=== PATIENT | male | born 1950 ===

== ENCOUNTER 2023-05-18 11:45 | Inpatient (IN) | payer OTHER ==
[~2023-05-18] VITALS: Ht 177.8 cm; Wt 84.4 kg
[2023-05-18] MEDS ORDERED: GLIPIZIDE XL10 MG PO (13:40)
[2023-05-18] MEDS ORDERED: METFORMIN HCL500 M3 PO (13:40)
[2023-05-18] MEDS ORDERED: TAMS0.4C PO (13:41)
[2023-05-18] MEDS ORDERED: ROSUVASTATIN CA20 MG PO (13:41)
[2023-05-18] MEDS ORDERED: CILOSTAZOL50 MG PO (13:41)
[2023-05-18] MEDS ORDERED: PRILOSEC OTC20 MG PO (13:41)
[2023-05-18] MEDS ORDERED: PROSCAR5 MG PO (13:42)
[2023-05-18] MEDS ORDERED: LANTUS SOL100 UNIT/1 (13:42)
[2023-05-23 07:19] LABS: HEMATOCRIT 32.2 % (39.0-48.0); MEAN CELL VOLUME 73.8 fL (80.0-100.00); MEAN CORPUSCULAR HGB CONC 31.2 g/dl (32.0-36.0); PLATELET COUNT 349 K/uL (150-450); RED BLOOD COUNT 4.36 M/uL (4.00-6.00); RED CELL DISTRIBUTION WIDTH 21.6 % (11.5-14.5)
[2023-05-23 07:36] LABS: ALBUMIN 2.7 gm/dL (3.4-5.0); CALCIUM 8.6 mg/dL (8.5-10.1); CREATININE SERUM 0.71 mg/dL (0.70-1.30); GFR 109.36; MAGNESIUM 1.8 mg/dL (1.8-2.4); PHOSPHOROUS 3.1 mg/dL (2.5-4.9); POTASSIUM 4.71 mEq/L (3.5-5.1)
[2023-05-25] MEDS ORDERED: NEURONTIN300 MG PO (10:51)
[2023-05-25] MEDS ORDERED: INTESTINEX680 M1 PO (10:51)
== END 2023-05-25 11:48 | disposition home or self-care (01) | DRG 331 ==
LOC: O/R 05-22 06:00 → SURG 05-22 11:45 → SURH 05-22 13:37
PROVIDERS: ADMIT Surgery; ATTEND Surgery
PROC: 07BB4ZZ Excision of Mesenteric Lymphatic, Percutaneous Endoscopic Approach (ICD-10-PCS; 2023-05-22)
PROC: 0DTF4ZZ Resection of Right Large Intestine, Percutaneous Endoscopic Approach (ICD-10-PCS; principal; 2023-05-22 13:15)
DX: C18.2 Malignant neoplasm of ascending colon (principal); R59.0 Localized enlarged lymph nodes

== ENCOUNTER 2024-02-10 00:34 | Inpatient (IN) | payer OTHER ==
[~2024-02-10] VITALS: Ht 152.4 cm; Wt 61.7 kg
[~2024-02-10 00:34] MED LIST: CILOSTAZOL50 MG PO; GLIPIZIDE XL10 MG PO; INTESTINEX680 M1 PO; LANTUS SOL100 UNIT/1; METFORMIN HCL500 M3 PO; NEURONTIN300 MG PO; PRILOSEC OTC20 MG PO; PROSCAR5 MG PO; ROSUVASTATIN CA20 MG PO; TAMS0.4C PO
--- NOTE | 2024-02-10 00:47 | NUR ---
PACIENTE MASCULINO ALERTA Y ORIENTADO X3, LLEGA A VIPIN DE EMERGENCIA EN AMBULANCIA. TRANFER DE DOCTOR [place], FUE OPERADO POR PAKO INGRAM Y FUE ACEPTADO POR LISA.
[2024-02-10] MEDS ORDERED: METRONIDAZOLE/SODIUM CHLORIDE 500 MG/100 ML PIGGYBACK IV STA (02:00)
[2024-02-10] MEDS ORDERED: CIPROFLOXACIN IN 5 % DEXTROSE 400 MG/200 ML PIGGYBAG IV SCH ×2 (02:00→09:00)
[2024-02-10] MEDS ORDERED: CIPROFLOXACIN IN 5 % DEXTROSE 400 MG/200 ML PIGGYBAG IV STA (02:00)
[2024-02-10] MEDS ORDERED: METRONIDAZOLE/SODIUM CHLORIDE 500 MG/100 ML PIGGYBACK IV SCH ×2 (02:01→09:00)
--- NOTE | 2024-02-10 02:10 | NUR ---
SE LE ORIENTA A PACIENTE SOBRE LA ORDEN MEDICA, REFIERE ENTENDER LAS MISMAS. SE CANALIZA Y SE LE COLOCA EL IVF'S, SE LE LARISSA LAS MUESTRAS Y SE LE ADMINISTRAN LOS MEDICAMENTOS SOM LA ORDEN MEDICA.
[2024-02-10] MEDS ORDERED: 0.9 % SODIUM CHLORIDE 1,000 ML IV ONE (02:15)
[2024-02-10 03:16] LABS: HEMATOCRIT 34.5 % (39.0-48.0); HEMOGLOBIN 11.3 g/dL (13-16.00); MEAN CELL VOLUME 81.1 fL (80.0-100.00); MEAN CORPUSCULAR HEMOGLOBIN 26.6 pg (27.00-32.0); MEAN CORPUSCULAR HGB CONC 32.8 g/dl (32.0-36.0); PLATELET COUNT 181 K/uL (150-450); RED BLOOD COUNT 4.25 M/uL (4.00-6.00); RED CELL DISTRIBUTION WIDTH 21.9 % (11.5-14.5)
[2024-02-10 03:26] LABS: INR 1.04; PROTHROMBIN TIME 11.3 SECONDS (9.0-11.5)
[2024-02-10 03:30] LABS: ALBUMIN 2.8 gm/dL (3.4-5.0); BILIRUBIN TOTAL 0.78 mg/dL (0.3-1.2); BILIRUBIN,CONJUGATED 0.26 mg/dL (0.0-0.2); BILIRUBIN,UNCONJUGATED 0.52 mg/dL (0.0-0.6); CALCIUM 8.4 mg/dL (8.5-10.1); CREATININE SERUM 0.75 mg/dL (0.70-1.30); GFR 102.37; POTASSIUM 3.61 mEq/L (3.5-5.1); TOTAL PROTEIN 6.8 gm/dL (6.4-8.2)
--- NOTE | 2024-02-10 07:37 | NUR ---
SE RECIBE PACIENTE ALERTA Y ORIENTADO X3 EN LISA EN POSICION SEMI SENTADA CON BARANDAS ELEVADAS. AL MOMENTO PENDIENTE CONSULTA. SE MANTIENE BAJO OBSERVACION PAR CONTINUACION DE TRATAMIENTO.
[2024-02-10] MEDS ORDERED: MORPHINE SULFATE 4 MG/ML VIAL IV PRN (08:00)
[2024-02-10] MEDS ORDERED: ONDANSETRON HCL 2 MG/ML VIAL IV PRN (08:00)
[2024-02-10] MEDS ORDERED: RINGERS SOLUTION,LACTATED 1,000 ML IV SCH (08:00)
[2024-02-10 08:53] VITALS: BP 129/68
[2024-02-10] MEDS ORDERED: MORPHINE SULFATE 4 MG/ML CARTRIDGE IV PRN (09:00)
[2024-02-10] MEDS ORDERED: FAMOTIDINE/PF 20 MG/2 ML VIAL IV SCH (09:00)
[2024-02-10 13:20] LABS: ob NEGATIVE (NEGATIVE)
[2024-02-10 16:19] VITALS: BP 151/61; O2SAT 99
[2024-02-10] MEDS ORDERED: CEFEPIME HCL 2,000 MG VIAL IV SCH (17:00)
[2024-02-10 18:22] VITALS: BP 135/70; O2SAT 96
[2024-02-10] MEDS ORDERED: VANCOMYCIN HCL 1,000 MG in 0.9 % SODIUM CHLORIDE 250 ML IV SCH (21:00)
[2024-02-11 02:00] VITALS: BP 128/70; O2SAT 99
[2024-02-11 04:47] LABS: HEMATOCRIT 34.6 % (39.0-48.0); MEAN CELL VOLUME 81.5 fL (80.0-100.00); MEAN CORPUSCULAR HGB CONC 32.5 g/dl (32.0-36.0); PLATELET COUNT 219 K/uL (150-450); RED BLOOD COUNT 4.24 M/uL (4.00-6.00); RED CELL DISTRIBUTION WIDTH 21.7 % (11.5-14.5)
[2024-02-11 04:50] LABS: HEMOGLOBIN 11.2 g/dL (13-16.00); MEAN CORPUSCULAR HEMOGLOBIN 26.4 pg (27.00-32.0)
[2024-02-11 05:41] LABS: ALBUMIN 2.7 gm/dL (3.4-5.0); BILIRUBIN TOTAL 0.84 mg/dL (0.3-1.2); CALCIUM 8.1 mg/dL (8.5-10.1); CREATININE SERUM 0.63 mg/dL (0.70-1.30); GFR 125.19; GLOBULINA 3.3 G/DL (2.4-3.5); MAGNESIUM 1.7 mg/dL (1.8-2.4); PHOSPHOROUS 2.3 mg/dL (2.5-4.9); POTASSIUM 3.57 mEq/L (3.5-5.1)
[2024-02-11 05:44] LABS: C-REACTIVE PROTEIN 13.7 MG/DL (0.00-0.29)
[2024-02-11 08:40] VITALS: BP 134/69
[2024-02-11] MEDS ORDERED: ENOXAPARIN SODIUM 40 MG/0.4 ML SYRINGE SUBCUTANEO SCH (17:00)
[2024-02-11] MEDS ORDERED: AA 4.25%/CAL/LYTES/DEXT 5% 1,000 ML PERIFERAL SCH (17:00)
[2024-02-11 17:28] VITALS: BP 140/69; O2SAT 98
[2024-02-12 01:10] VITALS: BP 147/60; O2SAT 99
[2024-02-12 06:11] LABS: URINE APPEARANCE Clear; URINE BILIRRUBIN Negative (NEGATIVE); URINE BLOOD Negative; URINE COLOR Dark Yellow; URINE LEUKOCYTE Negative; URINE NITRATE Negative
[2024-02-12 06:15] LABS: URINE BACTERIA 25.1 uL (0.0-1933); URINE EPITHELIAL CELLS 19.3 uL (0.0-38.8); URINE RBC 3.8 uL (0.0-20.8); URINE WBC 11.1 uL (0.0-23.2)
[2024-02-12 06:57] LABS: URINE CAST 0.45 uL (0.0-1.40); URINE GLUCOSE 100 MG/DL (NEGATIVE); URINE KETONE 80 (NEGATIVE); URINE PROTEIN 100 (NEGATIVE)
[2024-02-12 09:06] VITALS: BP 170/81; O2SAT 98
[2024-02-12] MEDS ORDERED: ENALAPRILAT DIHYDRATE 1.25 MG/ML VIAL IV PRN (13:00)
[2024-02-12 18:06] VITALS: BP 161/75
[2024-02-12] MEDS ORDERED: VANCOMYCIN HCL 5 MG/ML REDILUIDO IV SCH (21:00)
[2024-02-12] MEDS ORDERED: VANCOMYCIN HCL 1,250 MG in 0.9 % SODIUM CHLORIDE 250 ML IV SCH (21:00)
[2024-02-13 02:24] VITALS: BP 137/64; O2SAT 100
[2024-02-13 09:02] VITALS: BP 146/72; O2SAT 98
[2024-02-13] MEDS ORDERED: DIATRIZOATE MEGLUMINE, SODIUM 30 ML BOTTLE PO NR (13:45)
[2024-02-13 16:48] VITALS: BP 147/69
[2024-02-14 02:22] VITALS: BP 144/74; O2SAT 97
[2024-02-14 08:22] VITALS: BP 158/78; O2SAT 99
[2024-02-14 16:00] VITALS: BP 160/72; O2SAT 95
[2024-02-15 00:57] VITALS: BP 120/61; O2SAT 98
[2024-02-15 07:26] LABS: ALBUMIN 2.3 gm/dL (3.4-5.0); BILIRUBIN TOTAL 0.46 mg/dL (0.3-1.2); BILIRUBIN,CONJUGATED 0.13 mg/dL (0.0-0.2); BILIRUBIN,UNCONJUGATED 0.33 mg/dL (0.0-0.6); CALCIUM 8.2 mg/dL (8.5-10.1); CREATININE SERUM 0.5 mg/dL (0.70-1.30); GFR 163.45; GLOBULINA 3.2 G/DL (2.4-3.5); MAGNESIUM 1.7 mg/dL (1.8-2.4); PHOSPHOROUS 3.2 mg/dL (2.5-4.9); POTASSIUM 3.36 mEq/L (3.5-5.1); TOTAL PROTEIN 5.5 gm/dL (6.4-8.2)
[2024-02-15 08:06] LABS: HEMATOCRIT 35.9 % (39.0-48.0); HEMOGLOBIN 11.9 g/dL (13-16.00); MEAN CELL VOLUME 81.4 fL (80.0-100.00); MEAN CORPUSCULAR HGB CONC 33.2 g/dl (32.0-36.0); PLATELET COUNT 273 K/uL (150-450); RED BLOOD COUNT 4.41 M/uL (4.00-6.00); RED CELL DISTRIBUTION WIDTH 21.6 % (11.5-14.5)
[2024-02-15 09:28] VITALS: BP 122/68; O2SAT 97
[2024-02-15 15:05] LABS: INR 1.21; PARTIAL THROMBOPLASTIN TIME 30.8 SECONDS (22.0-34.0)
[2024-02-15 16:00] VITALS: BP 161/80; O2SAT 92
[2024-02-15] MEDS ORDERED: POTASSIUM CHLORIDE 20MEQ/100ML H2O PB IV NR (17:00)
[2024-02-15] MEDS ORDERED: MAGNESIUM SULFATE 1,000 MG in 0.9 % SODIUM CHLORIDE 50 ML IV NR (17:00)
[2024-02-16 00:21] VITALS: BP 134/77; O2SAT 97
[2024-02-16 08:30] LABS: UREA CLEARANCE 59.7 ML/MIN
[2024-02-16 08:44] VITALS: BP 132/73; O2SAT 96
== END 2024-02-16 16:11 | disposition home or self-care (01) | DRG 921 ==
LOC: ER 00:34 → MEDI 08:52 → SEC-K 08:52 → MEDI 15:24 → SEC-K 15:26 → MEDI 15:52
PROVIDERS: General Practice; Internal Medicine; Internal Medicine Infectious Disease; ADMIT Surgery; ATTEND Surgery
PROC: 02HV33Z Insertion of Infusion Device into Superior Vena Cava, Percutaneous Approach (ICD-10-PCS; 2024-02-12)
PROC: BW21YZZ Computerized Tomography (CT Scan) of Abdomen and Pelvis using Other Contrast (ICD-10-PCS; principal; 2024-02-13)
DX: T81.320A Disruption or dehiscence of gastrointestinal tract anastomosis, repair, or closure, initial encounter (principal); E11.9 Type 2 diabetes mellitus without complications; Z79.4 Long term (current) use of insulin; E78.5 Hyperlipidemia, unspecified; N40.0 Benign prostatic hyperplasia without lower urinary tract symptoms